=== PATIENT | female | born 1990 | race American Indian/Alaskan Native ===

== ENCOUNTER 2019-05-23 09:41 | Emergency (ER) | payer SELFPAY ==
[2019-05-23 11:01] LABS: Basophils # (Auto) 0.1 K/mm3 (0.0-0.1); Basophils % (Auto) 0.7 % (0.0-1.8); Eosinophils # (Auto) 0.1 K/mm3 (0.0-0.4); Eosinophils % (Auto) 1.3 % (0.0-4.3); Hemoglobin 13.9 gm/dl (10.1-14.3); Lymphocytes # (Auto) 2.2 K/mm3 (1.2-5.4); Lymphocytes % (Auto) 19.9 % (13.4-35.0); Mean Corpuscular HGB Conc 33 % (30-34); Mean Corpuscular Volume 94 fl (79-97); Monocytes # (Auto) 0.6 K/mm3 (0.0-0.8); Monocytes % (Auto) 5.8 % (0.0-7.3); Platelet Count 282 K/mm3 (140-440); Red Blood Count 4.46 M/mm3 (3.65-5.03); Red Cell Distribution Width 13.8 % (13.2-15.2)
[2019-05-23 11:18] LABS: Alanine Aminotransferase 16 units/L (7-56); Albumin 3.9 g/dL (3.9-5); BUN/Creatinine Ratio 11; Blood Urea Nitrogen 8 mg/dL (7-17); Calcium 8.9 mg/dL (8.4-10.2); Hemolysis Index 8
[2019-05-23 11:52] LABS: Bilirubin,Urine NEG (Negative); Blood,Urine NEG (Negative); Color,Urine Yellow (Yellow); Mucus,Urine 2+ /HPF; Protein,Urine <15 mg/dL mg/dL (Negative); Urobilinogen,Urine < 2.0 mg/dL (<2.0)
--- NOTE | 2019-05-23 12:15 | Emergency Department Report ---
ED Female HPI - General Chief complaint: Urogenital-Female Stated complaint: ABD PAIN Time Seen by Provider: 05/23/19 11:23 Source: patient Mode of arrival: Ambulatory Limitations: No Limitations - History of Present Illness Initial comments: This is a 28-year-old female who is alert and who presents to ED complaining of pelvic pain intermittently for the past 2 weeks. Patient states that she started to notice S vaginal odor with mild yellow discharge for the past week now. Patient states that she has had a history of abnormal cycle and states her last menstrual period was 03/06/2019. Patient did admit to have a recent operative intercourse. She denies fevers/chills/nausea vomiting or diarrhea or any vaginal bleeding. MD Complaint: pelvic pain - Related Data Previous Rx's Medication Instructions Recorded Last Taken Type metroNIDAZOLE [Flagyl] 500 mg PO Q12HR #14 tab 05/23/19 Unknown Rx Allergies Allergy/AdvReac Type Severity Reaction Status Date / Time No Known Allergies Allergy Unverified 05/23/19 09:47 ED Review of Systems ROS: Stated complaint: ABD PAIN Other details as noted in HPI Comment: All other systems reviewed and negative ED Past Medical Hx - Past Medical History Previous Medical History?: No - Surgical History Past Surgical History?: No - Social History Smoking Status: Never Smoker Substance Use Type: None - Medications Home Medications: Home Medications Medication Instructions Recorded Confirmed Last Taken Type metroNIDAZOLE [Flagyl] 500 mg PO Q12HR #14 tab 05/23/19 Unknown Rx ED Physical Exam - General Limitations: No Limitations General appearance: alert, in no apparent distress - Head Head exam: Present: atraumatic, normocephalic - Eye Eye exam: Present: normal appearance - ENT ENT exam: Present: mucous membranes moist - Neck Neck exam: Present: normal inspection - Respiratory Respiratory exam: Present: normal lung sounds bilaterally. Absent: respiratory distress - Cardiovascular Cardiovascular Exam: Present: regular rate, normal rhythm. Absent: systolic mu rmur, diastolic murmur, rubs, gallop - GI/Abdominal GI/Abdominal exam: Present: soft, normal bowel sounds. Absent: distended, tenderness, guarding, rebound, mass - Extremities Exam Extremities exam: Present: normal inspection - Back Exam Back exam: Present: normal inspection - Neurological Exam Neurological exam: Present: alert, oriented X3 - Psychiatric Psychiatric exam: Present: normal affect, normal mood - Skin Skin exam: Present: warm, dry, intact, normal color. Absent: rash ED Course Vital Signs 05/23/19 05/23/19 05/23/19 10:07 11:41 13:25 Temperature 98.8 F Pulse Rate 70 Respiratory 16 16 17 Rate Blood Pressure 127/72 Blood Pressure [Left] O2 Sat by Pulse 98 Oximetry 05/23/19 15:17 Temperature 98.2 F Pulse Rate 74 Respiratory 16 Rate Blood Pressure Blood Pressure 116/67 [Left] O2 Sat by Pulse 100 Oximetry ED Medical Decision Making - Lab Data Result diagrams: 05/23/19 10:12 05/23/19 10:12 - Radiology Data Radiology results: report reviewed, image reviewed OB Ultrasound HISTORY: Acute pelvic pain. TECHNIQUE: Grayscale and color Doppler imaging performed. COMPARISON: None FINDINGS: Transabdominal and endovaginal imaging was performed. The uterus measures 10.3 x 5.6 x 7.1 cm. There is an intrauterine cystic stru cture with a pole measuring 1.2 cm in length. This corresponds with an EGA of 7 weeks and 2 days. Mean sac diameter is 2.7 cm corresponding with an EGA of 7 weeks and 5 days. The overall EGA is 7 weeks and 4 days taking these measurements into account. The heart rate is 144 bpm. A tiny yolk sac is present. There is preserved blood flow to both ovaries with small probable complex cyst in the right. IMPRESSION: 1. Single viable intrauterine gestation as outlined above. 2. Small probable complex cyst in the right ovary. Attention on follow-up recommended. Signer Name: Tre Mccartney MD Signed: 05/23/2019 2:57 PM Workstation Name: [id number] Transcribed By: ADRIENNE Dictated By: Tre Mccartney MD Electronically Authenticated By: Tre Mccartney MD Signed Date/Time: 05/23/19 7012 - Medical Decision Making 28-year-old female presents with BV and normal Labs are within normal limits, test positive, discussed findings with the patient. OB ultrasound ordered, ultrasound report see report above Patient received Tylenol for pelvic pain while in ED. Wet prep and gonorrhea and Chlamydia cultures were sent. Urinalysis is negative Vital signs are normal she is in no acute distress. Discussed the patient is to follow up with [facility] as soon as possible. Critical care attestation.: If time is entered above; I have spent that time in minutes in the direct care of this critically ill patient, excluding procedure time. ED Disposition Clinical Impression: Ovarian cyst Vaginitis Qualifiers: Chronicity: acute Qualified Code(s): N76.0 - Acute vaginitis Qualifiers: Weeks of gestation: less than 8 weeks Qualified Code(s): Z3A.01 - Less than 8 weeks gestation of Disposition: TO HOME OR SELFCARE Is pt being admited?: No Does the pt Need Aspirin: No Condition: Stable Instructions: (ED), Bacterial Vaginosis (ED) Additional Instructions: Make sure to follow up with the [facility] as discussed. Take Tylenol as needed for cramping and pain If you have any worsening symptoms or develop new symptoms please return to ED immediately. Prescriptions: metroNIDAZOLE [Flagyl] 500 mg PO Q12HR #14 tab Referrals: PRIMARY CARE, [Primary Care Provider] - 3-5 Days [facility] [Provider Group] - 3-5 Days [facility] [Provider Group] - 3-5 Days Forms: Accompanied Note, Work/School Release Form(ED) Time of Disposition: 15:05
[2019-05-23] MEDS ORDERED: ACETAMINOPHEN 500 MG TAB PO ONE (13:21)
[2019-05-23] MEDS ORDERED: ACETAMINOPHEN 500 MG TAB ONE (13:25)
--- NOTE | 2019-05-23 15:01 | Ultrasound Report ---
OB Ultrasound HISTORY: Acute pelvic pain. TECHNIQUE: Grayscale and color Doppler imaging performed. COMPARISON: None FINDINGS: Transabdominal and endovaginal imaging was performed. The uterus measures 10.3 x 5.6 x 7.1 cm. There is an intrauterine cystic structure with a pole measuring 1.2 cm in length. This corresponds with an EGA of 7 weeks and 2 days. Mean sac diameter is 2.7 cm corresponding with an EGA of 7 weeks and 5 days. The overall EGA is 7 weeks and 4 days taking these measurements into account. The heart rate is 144 bpm. A tiny yolk sac is present. There is pres erved blood flow to both ovaries with small probable complex cyst in the right. IMPRESSION: 1. Single viable intrauterine gestation as outlined above. 2. Small probable complex cyst in the right ovary. Attention on follow-up recommended. Signer Name: Tre Mccartney MD Signed: 05/23/2019 2:57 PM Workstation Name: [id number]
[2019-05-23 15:18] VITALS: BP 116/67
== END 2019-05-23 15:19 | disposition home or self-care (01) ==
LOC: ED 09:41
DX: O34.81 Maternal care for other abnormalities of pelvic organs, first trimester (principal); N83.201 Unspecified ovarian cyst, right side; Z79.899 Other long term (current) drug therapy; Z3A.01 Less than 8 weeks gestation of pregnancy
CPT/HCPCS: 36415; 76801; 76817; 80053; 81001; 84702; 84703; 85025; 87210; 87591

== ENCOUNTER 2019-08-13 14:05 | Observation (INO) | payer OTHER ==
--- NOTE | 2019-08-13 14:18 | Event Note ---
ED Screening Note Date of service: 08/13/19 Time: 14:17 ED Screening Note: 29 yo F, , 19 wks with intermittent leakage of clear vaginal fluid since this morning. Reports intermittent, mild, sharp lower abdominal pain. Denies vaginal bleeding. OB: [facility] (cannot remember dr's name) This initial assessment/diagnostic orders/clinical plan/treatment(s) is/are subject to change based on patients health status, clinical progression and re- assessment by fellow clinical providers in the ED. Further treatment and workup at subsequent clinical providers discretion. Patient/guardian urged not to elope from the ED as their condition may be serious if not clinically assessed and managed. Initial orders include: US labs
--- NOTE | 2019-08-13 15:36 | Ultrasound Report ---
US OB >= 14 weeks Fetus INDICATION / CLINICAL INFORMATION: 19 wks , abd pain, leakage of fluid. COMPARISON: 05/23/2019 FINDINGS: Viable single intrauterine gestation in the cephalic presentation. cardiac activity is identified with a heart rate of 156 bpm The placenta is anterior and free of the os. Amniotic fluid volume is decreased. measurements: BPD 4.3 equal to 18 weeks 6 days Head circumference 15.8 equal to 18 weeks 5 days Abdominal circumference 12.7 equal to 18 weeks 2 days Femur length 2.9 equal to 18 weeks 6 days Estimated body weight 246 g Cervical length was measured at 4 cm. IMPRESSION: 1. Viable single 18 week 3 day gestation. 2. Decreased amniotic fluid. Signer Name: Anant Elise MD Signed: 08/13/2019 3:32 PM Workstation Name: [id number]
[2019-08-13 16:29] LABS: Basophils # (Auto) 0.1 K/mm3 (0.0-0.1); Basophils % (Auto) 0.5 % (0.0-1.8); Eosinophils # (Auto) 0.4 K/mm3 (0.0-0.4); Eosinophils % (Auto) 3.1 % (0.0-4.3); Hematocrit 37.5 % (30.3-42.9); Hemoglobin 12.6 gm/dl (10.1-14.3); Lymphocytes % (Auto) 15.5 % (13.4-35.0); Mean Corpuscular HGB Conc 34 % (30-34); Mean Corpuscular Volume 93 fl (79-97); Monocytes % (Auto) 7.7 % (0.0-7.3); Platelet Count 257 K/mm3 (140-440); Red Blood Count 4.02 M/mm3 (3.65-5.03); Red Cell Distribution Width 14.2 % (13.2-15.2)
[2019-08-13 16:48] LABS: BUN/Creatinine Ratio 12; Blood Urea Nitrogen 6 mg/dL (7-17); Calcium 9.7 mg/dL (8.4-10.2); Hemolysis Index 9
[2019-08-13 17:29] LABS: Bilirubin,Urine NEG (Negative); Blood,Urine NEG (Negative); Color,Urine Yellow (Yellow); Mucus,Urine FEW /HPF; Protein,Urine <15 mg/dL mg/dL (Negative); RBC,Urine < 1.0 /HPF (0.0-6.0); Urobilinogen,Urine < 2.0 mg/dL (<2.0)
--- NOTE | 2019-08-13 17:43 | Emergency Department Report ---
ED HPI - General Chief complaint: Urogenital-Female Stated complaint: 19 WEEKS FLUID LEAK Time Seen by Provider: 08/13/19 16:52 Source: patient Mode of arrival: Wheelchair Limitations: No Limitations - History of Present Illness Initial comments: 29-year-old female me approximately 19 weeks complaining of leakage of fluid from vagina since this morning. There was initially green but more recently yellow. There has been making intermittently. Patient complains of some mild lower abdominal discomfort due to her abdomen is swelling with and denies contractions. No fever or dysuria. Patient has received care. Her BUSINESS ASSISTANT is in [facility] and patient states she is supposed to deliver here. This patient's first with no history of ectopic, miscarriages, or abortions. PT follows with [facility] in [place]. - Related Data Previous Rx's Medication Instructions Recorded Last Taken Type metroNIDAZOLE [Flagyl] 500 mg PO Q12HR #14 tab 05/23/19 Unknown Rx Allergies Allergy/AdvReac Type Severity Reaction Status Date / Time No Known Allergies Allergy Verified 08/13/19 14:08 ED Review of Systems ROS: Stated complaint: 19 WEEKS FLUID LEAK Other details as noted in HPI Comment: All other systems reviewed and negative ED Past Medical Hx - Past Medical History Previous Medical History?: No - Surgical History Past Surgical History?: No - Social History Smoking Status: Never Smoker Substance Use Type: None - Medications Home Medications: Home Medications Medication Instructions Recorded Confirmed Last Taken Type metroNIDAZOLE [Flagyl] 500 mg PO Q12HR #14 tab 05/23/19 Unknown Rx ED Physical Exam - General Limitations: No Limitations - Other Other exam information: General: No limitations, patient is alert in no acute distress Head exam: Atraumatic, normocephalic Eyes exam: Normal appearance ENT: Moist mucous membrane Neck exam: Normal inspection, full range of motion Respiratory exam: Clear to auscultation bilateral, no wheezes, rales, crackles Cardiovascular: Normal rate and rhythm Abdomen: Soft, abdomen without significant pelvic tenderness. : Clear and white discharge in the vaginal canal Extremity: No deformity Back: Normal Inspection, no CVA tenderness Neurologic: Alert, oriented x3, speech clear, no gross motor or sensory deficit Psychiatric: Normal mood, affect Skin: No rash ED Course Vital Signs 08/13/19 08/13/19 08/13/19 14:09 14:13 17:11 Temperature 97.5 F L 97.5 F L Pulse Rate 94 H 96 H 83 Respiratory 18 18 18 Rate Blood Pressure 117/70 117/70 Blood Pressure 112/67 [Left] O2 Sat by Pulse 98 95 100 Oximetry - Consultations Consultation #1: 08/13/19 18:02 Reason the patient only provided that her OB doctor is at [facility]. After speaking to inspector insulation in store demonstrator Franny with in store demonstrator [employer] she clarified kasie the [facility] is likely part of [facility]. I confirmed with patient that it is indeed a [facility] clinic in [place]. Dr Chew is inspector insulation for this group. Leela called on cell phone and he did not answer. message left on voicemail to call ed and text message also sent to phone. 08/13/19 18:24 OR called, Dr Swenson is no there apparently Other providers are having difficulty getting a hold of him. warehouse operator made aware. 08/13/19 18:52 case d/w Dr Swenson, rec Ampicillin 2g iv x 1 and admit to mother baby ED Medical Decision Making - Lab Data Result diagrams: 08/13/19 15:40 08/13/19 15:40 Lab Results 08/13/19 08/13/19 08/13/19 Range/Units 15:40 15:40 15:40 WBC 12.7 H (4.5-11.0) K/mm3 RBC 4.02 (3.65-5.03) M/mm3 Hgb 12.6 (10.1-14.3) gm/dl Hct 37.5 (30.3-42.9) % MCV 93 (79-97) fl MCH 31 (28-32) pg MCHC 34 (30-34) % RDW 14.2 (13.2-15.2) % Plt Count 257 (140-440) K/mm3 Lymph % (Auto) 15.5 (13.4-35.0) % [place] % (Auto) 7.7 H (0.0-7.3) % Eos % (Auto) 3.1 (0.0-4.3) % Baso % (Auto) 0.5 (0.0-1.8) % Lymph # 2.0 (1.2-5.4) K/mm3 [place] # 1.0 H (0.0-0.8) K/mm3 Eos # 0.4 (0.0-0.4) K/mm3 Baso # 0.1 (0.0-0.1) K/mm3 Seg Neutrophils % 73.2 H (40.0-70.0) % Seg Neutrophils # 9.3 H (1.8-7.7) K/mm3 Sodium 135 L (137-145) mmol/L Potassium 3.7 (3.6-5.0) mmol/L Chloride 102.7 (98-107) mmol/L Carbon Dioxide 21 L (22-30) mmol/L Anion Gap 15 mmol/L BUN 6 L (7-17) mg/dL Creatinine 0.5 L (0.7-1.2) mg/dL Estimated GFR > 60 ml/min BUN/Creatinine Ratio 12 % Glucose 97 (65-100) mg/dL Calcium 9.7 (8.4-10.2) mg/dL HCG, Quant 75819 H (0-4) mIU/mL Urine Color (Yellow) Urine Turbidity (Clear) Urine pH (5.0-7.0) Ur Specific [place] (1.003-1.030) Urine Protein (Negative) mg/dL Urine Glucose (UA) (Negative) mg/dL Urine Ketones (Negative) mg/dL Urine Blood (Negative) Urine Nitrite (Negative) Urine Bilirubin (Negative) Urine Urobilinogen (<2.0) mg/dL Ur Leukocyte Esterase (Negative) Urine WBC (Auto) (0.0-6.0) /HPF Urine RBC (Auto) (0.0-6.0) /HPF U Epithel Cells (Auto) (0-13.0) /HPF Urine Mucus /HPF 08/13/19 Range/Units 17:02 WBC (4.5-11.0) K/mm3 RBC (3.65-5.03) M/mm3 Hgb (10.1-14.3) gm/dl Hct (30.3-42.9) % MCV (79-97) fl MCH (28-32) pg MCHC (30-34) % RDW (13.2-15.2) % Plt Count (140-440) K/mm3 Lymph % (Auto) (13.4-35.0) % [place] % (Auto) (0.0-7.3) % Eos % (Auto) (0.0-4.3) % Baso % (Auto) (0.0-1.8) % Lymph # (1.2-5.4) K/mm3 [place] # (0.0-0.8) K/mm3 Eos # (0.0-0.4) K/mm3 Baso # (0.0-0.1) K/mm3 Seg Neutrophils % (40.0-70.0) % Seg Neutrophils # (1.8-7.7) K/mm3 Sodium (137-145) mmol/L Potassium (3.6-5.0) mmol/L Chloride (98-107) mmol/L Carbon Dioxide (22-30) mmol/L Anion Gap mmol/L BUN (7-17) mg/dL Creatinine (0.7-1.2) mg/dL Estimated GFR ml/min BUN/Creatinine Ratio % Glucose (65-100) mg/dL Calcium (8.4-10.2) mg/dL HCG, Quant (0-4) mIU/mL Urine Color Yellow (Yellow) Urine Turbidity Clear (Clear) Urine pH 6.0 (5.0-7.0) Ur Specific [place] 1.014 (1.003-1.030) Urine Protein <15 mg/dl (Negative) mg/dL Urine Glucose (UA) Neg (Negative) mg/dL Urine Ketones Neg (Negative) mg/dL Urine Blood Neg (Negative) Urine Nitrite Neg (Negative) Urine Bilirubin Neg (Negative) Urine Urobilinogen < 2.0 (<2.0) mg/dL Ur Leukocyte Esterase Tr (Negative) Urine WBC (Auto) 16.0 H (0.0-6.0) /HPF Urine RBC (Auto) < 1.0 (0.0-6.0) /HPF U Epithel Cells (Auto) 2.0 (0-13.0) /HPF Urine Mucus Few /HPF - Radiology Data Radiology results: report reviewed US OB >= 14 weeks Fetus INDICATION / CLINICAL INFORMATION: 19 wks , abd pain, leakage of fluid. COMPARISON: 05/23/2019 FINDINGS: Viable single intrauterine gestation in the cephalic presentation. cardiac activity is identified with a heart rate of 156 bpm The placenta is anterior and free of the os. Amniotic fluid volume is decreased. measurements: BPD 4.3 equal to 18 weeks 6 days Head circumference 15.8 equal to 18 weeks 5 days Abdominal circumference 12.7 equal to 18 weeks 2 days Femur length 2.9 equal to 18 weeks 6 days Estimated body weight 246 g Cervical length was measured at 4 cm. IMPRESSION: 1. Viable single 18 week 3 day gestation. 2. Decreased amniotic fluid. - Medical Decision Making pt to be admitted to mother baby, case d/w Dr Swenson Ampicillin 2g ordered as per OB Macrobid po x 1 also given for uti prior to ob consult urine culture pending - Differential Diagnosis leakage of fluid, infection Critical Care Time: No Critical care attestation.: If time is entered above; I have spent that time in minutes in the direct care of this critically ill patient, excluding procedure time. ED Disposition Clinical Impression: Leakage of amniotic fluid, 18 weeks gestation of , Urine WBC increased Disposition: DC-[id number] OP ADMIT IP TO THIS HOSP Is pt being admited?: Yes Does the pt Need Aspirin: No Condition: Stable Time of Disposition: 19:03 (DR Swenson/ob)
[2019-08-13] MEDS ORDERED: NITROFURANTOIN MONOHYD/M-CRYST 100 MG CAP PO ONE (18:01)
[2019-08-13] MEDS ORDERED: AMPICILLIN/NS 2 GM/100 ML 2 GM/100 ML BAG IV ONE (18:49)
[2019-08-13] MEDS ORDERED: AMPICILLIN 2,000 MG in SODIUM CHLORIDE 0.9% 50 ML IV ONE (18:49)
--- NOTE | 2019-08-13 21:52 | History and Physical Report ---
History of Present Illness Date of examination: 08/13/19 Date of admission: 08/13/19 19:04 Chief complaint: Leaking of fluid since 11:10 AM today. History of present illness: Requested by Dr. Chew to do H&P. Dr. Chew is taking care of patient; H&P put in as courtesy per MD request. Patient is a 29 year old female who presented to the ED complaining of zhao kyle of clear and green fluid from vagina since 11:10 AM today. Patient reports she also has pelvic cramping but denies vaginal bleeding. Patient states she feels movement. Patient states she receives care at [facility] but records are not available. Patient reports her LMP is 01/04/2020 based on an early US. Patient denies any problems with this ; states she takes vitamins and no other medications. 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 denies: smoking, alcohol abuse, prescription drug abuse, IV drug use - Obstetrical History Expected Date of Delivery: 01/04/20 Actual Gestation: 19 Week(s) 3 Day(s) : 1 Para: 0 Hx # Term Pregnancies: 0 Number of Pregnancies: 0 Spontaneous Abortions: 0 Induced : 0 Number of Living Children: 0 Medications and Allergies Allergies Allergy/AdvReac Type Severity Reaction Status Date / Time No Known Allergies Allergy Verified 08/13/19 14:08 Home Medications Medication Instructions Recorded Confirmed Last Taken Type metroNIDAZOLE [Flagyl] 500 mg PO Q12HR #14 tab 05/23/19 Unknown Rx Review of Systems All systems: negative (leaking of fluid from vagina; pelvic cramping) - Vital Signs Vital signs: Vital Signs Temp Pulse Resp BP Pulse Ox 97.5 F L 94 H 18 117/70 98 08/13/19 14:09 08/13/19 14:09 08/13/19 14:09 08/13/19 14:08/13/19 14:09 Temp Pulse Resp BP Pulse Ox 97.4 F L 86 18 105/59 98 08/13/19 21:05 08/13/19 21:05 08/13/19 21:05 08/13/19 21:05 08/13/19 21:05 - Physical Exam Cardiovascular: Regular rate, Normal S1, Normal S2, No murmurs Lungs: Positive: Clear to auscultation Abdomen: Positive: normal appearance, soft. Negative: distention, tenderness, guarding Extremities: Positive: normal. Negative: tenderness Results Result Diagrams: 08/13/19 15:40 08/13/19 15:40 Abnormal lab results 08/13/19 08/13/19 08/13/19 Range/Units 15:40 15:40 15:40 WBC 12.7 H (4.5-11.0) K/mm3 [place] % (Auto) 7.7 H (0.0-7.3) % [place] # 1.0 H (0.0-0.8) K/mm3 Seg Neutrophils % 73.2 H (40.0-70.0) % Seg Neutrophils # 9.3 H (1.8-7.7) K/mm3 Sodium 135 L (137-145) mmol/L Carbon Dioxide 21 L (22-30) mmol/L BUN 6 L (7-17) mg/dL Creatinine 0.5 L (0.7-1.2) mg/dL HCG, Quant 98159 H (0-4) mIU/mL Urine WBC (Auto) (0.0-6.0) /HPF 08/13/19 Range/Units 17:02 WBC (4.5-11.0) K/mm3 [place] % (Auto) (0.0-7.3) % [place] # (0.0-0.8) K/mm3 Seg Neutrophils % (40.0-70.0) % Seg Neutrophils # (1.8-7.7) K/mm3 Sodium (137-145) mmol/L Carbon Dioxide (22-30) mmol/L BUN (7-17) mg/dL Creatinine (0.7-1.2) mg/dL HCG, Quant (0-4) mIU/mL Urine WBC (Auto) 16.0 H (0.0-6.0) /HPF All other labs normal. Assessment and Plan A: at 19 weeks, 3 days gestation. Possible SROM. Threatened AB. UTI. P: Continue current antibiotics for UTI. Managment/care of patient is to be by Dr. Chew.
[2019-08-14] MEDS ORDERED: SODIUM CHLORIDE 0.9% 1000 ML 1,000 ML IV SCH ×2 (01:30→13:00)
[2019-08-14] MEDS: AMPICILLIN/NS 1 GM/50 ML 1 GM/50 ML BAG IV SCH ×3 (03:40→14:00)
[2019-08-14] MEDS ORDERED: MORPHINE 2 MG/1 ML INJ IM SCH (13:00)
[2019-08-14 14:52] LABS: Amphetamine Screen,Urine PRESUMPTIVE NEGATIVE; Benzodiazepines Screen,Urine PRESUMPTIVE NEGATIVE; Cannabinoid Screen,Urine PRESUMPTIVE NEGATIVE; Cocaine Screen,Urine PRESUMPTIVE NEGATIVE; Methadone Screen,Urine PRESUMPTIVE NEGATIVE; Opiate Screen,Urine PRESUMPTIVE NEGATIVE
[2019-08-14] MEDS ORDERED: fentaNYL 100 MCG/2 ML INJ IV ONE (15:36)
[2019-08-14] MEDS ORDERED: fentaNYL 250 MCG/5 ML INJ IV PRN (16:00)
[2019-08-14] MEDS ORDERED: fentaNYL 250 MCG/5 ML INJ IV SCH (16:00)
[2019-08-14] MEDS ORDERED: miSOPROStol 200 MCG TAB ONE (16:46)
[2019-08-14] MEDS ORDERED: miSOPROStol 200 MCG TAB PR ONE (17:00)
--- NOTE | 2019-08-14 17:34 | Event Note ---
Date: 08/14/19 Dr. Chew called and stated that patient delivered baby and placenta and that she is not bleeding. Dr. Chew requests that I make sure patient receives 800 mcg of Cytotec rectally. I spoke with patient's nurse and nurse states that she has just given Cytotec 800 mcg rectally. Patient's vaginal bleeding is minimal. Comforted patient and she states that she would like to speak with social media editor/vocational case manager. Consult put in for patient. orders put in for patient per RN request.
[2019-08-14] MEDS ORDERED: HYDROcodone/ACETAMINOPHEN 5-325 MG TAB PO PRN (17:35)
[2019-08-14] MEDS ORDERED: WITCH HAZEL/ GLYCERIN PAD TP PRN (17:35)
[2019-08-14] MEDS ORDERED: MAGNESIUM HYDROXIDE (MOM) ORAL LIQD UDC PO PRN (17:35)
[2019-08-14] MEDS: IBUPROFEN 600 MG TAB PO SCH (17:52)
[2019-08-15 05:44] LABS: Hematocrit 32.8 % (30.3-42.9); Hemoglobin 11.1 gm/dl (10.1-14.3)
[2019-08-15] MEDS: IBUPROFEN 600 MG TAB PO SCH (07:34)
--- NOTE | 2019-08-15 11:11 | Progress Note ---
Assessment and Plan - Patient Problems (1) Spontaneous loss Current Visit: Yes Status: Acute Plan to address problem: PPD 1 - stable Discharge to home today Follow up at [facility] as needed or in 4 weeks for exam Subjective - Subjective Date of service: 08/15/19 Principal diagnosis: PPD #1; s/p SAB @ 19 weeks Interval history: see ED Screening, , H&P and Event Note Patient reports: appetite normal, voiding normally, pain well controlled, ambulating normally, no dizzy ambulation : Objective - Vital Signs Latest vital signs: Vital Signs Temp Pulse Resp BP BP Pulse Ox 08/15/19 07:54 99.0 F 107 H 20 99/60 100 08/15/19 06:11 98.6 F 90 18 100/69 100 08/15/19 02:13 97.7 F 94 H 20 105/58 98 08/14/19 21:30 98.2 F 95 H 18 104/62 99 08/14/19 19:28 89 107/54 08/14/19 18:58 93 H 125/68 08/14/19 18:28 98 H 110/64 08/14/19 17:58 92 H 124/70 08/14/19 17:25 101 H 120/73 08/14/19 17:24 94 H 100 08/14/19 17:19 104 H 100 08/14/19 17:14 103 H 100 08/14/19 17:10 100 H 99/54 08/14/19 17:09 99 H 100 08/14/19 17:04 99 H 100 08/14/19 16:59 101 H 100 08/14/19 16:55 100 H 97/59 08/14/19 16:54 98 H 100 08/14/19 16:49 96 H 100 08/14/19 16:44 100 H 100 08/14/19 16:41 96 H 97/52 08/14/19 16:39 101 H 100 08/14/19 16:34 102 H 99 08/14/19 16:29 97 H 100 08/14/19 16:25 100 H 123/70 08/14/19 16:24 101 H 100 08/14/19 16:19 115 H 100 08/14/19 16:16 110 H 71 L 08/14/19 16:14 107 H 100 08/14/19 16:13 98.8 F 20 08/14/19 16:12 100 H 20 134/73 08/14/19 16:09 100 H 100 08/14/19 16:04 98 H 100 08/14/19 15:59 99 H 99 08/14/19 15:54 90 100 08/14/19 15:49 98 H 100 08/14/19 15:44 98 H 100 08/14/19 15:39 102 H 99 08/14/19 15:34 98 H 100 08/14/19 15:29 97 H 100 08/14/19 15:24 95 H 100 08/14/19 15:19 93 H 100 08/14/19 15:14 95 H 100 08/14/19 15:09 98 H 95 08/14/19 15:00 94 H 100 08/14/19 14:55 98 H 100 08/14/19 14:50 99 H 100 08/14/19 14:45 94 H 100 08/14/19 14:40 99 H 100 08/14/19 14:35 95 H 100 08/14/19 14:30 97 H 100 08/14/19 14:25 94 H 100 08/14/19 14:20 95 H 100 08/14/19 14:15 96 H 100 08/14/19 14:10 93 H 100 08/14/19 13:30 99 H 100 08/14/19 13:25 96 H 100 08/14/19 13:20 92 H 100 08/14/19 13:18 98.6 F 20 08/14/19 13:15 102 H 100 08/14/19 13:10 93 H 118/66 99 08/14/19 12:17 94 H 100 08/14/19 12:12 94 H 100 08/14/19 12:07 94 H 112/62 100 Intake and Output 08/14/19 08/15/19 08/15/19 23:59 07:59 15:59 Intake Total 480 Output Total 1200 Balance -720 Intake: Intake, Free Water 480 Output: Urine 1200 Void 1200 Other: Total, Output Amount 800 Estimated Blood Loss 100 - Exam Cardiovascular: Present: Regular rate Lungs: Present: Clear to auscultation Abdomen: Present: normal appearance, soft Vulva: both: normal Uterus: Present: normal, firm, fundal height below umbilicus Extremities: Present: normal Comments: scant lochia
--- NOTE | 2019-08-15 11:18 | Discharge Summary ---
Providers - Providers Date of Admission: 08/13/19 19:04 Date of discharge: 08/15/19 Attending physician: MJ PAUL MD 08/14/19 17:38 Consult to Case Management [CONS] Routine Services Needed at Discharge: Shoe Stainer Additional Physician Instructions: SAB. Patient may need grief services. Also undecided if she wants autopsy on baby or not. Primary care physician: SCREEN MA[employer]PER[employer]OR Hospitalization Reason for admission: other (spontaneous rupture of membranes at 19 weeks) Delivery: Episiotomy: none Laceration: none Other procedures: none complications: none Discharge diagnosis: other (complete spontaneous ) Hospital course: Uncomplicated Condition at discharge: Stable Disposition: DC-01 TO HOME OR SELFCARE - Discharge Diagnoses (1) Spontaneous loss Status: Acute Plan - Discharge Medications Prescriptions: Ibuprofen [Motrin 600 MG tab] 600 mg PO Q6H #30 tablet - Provider Discharge Summary Activity: routine, no sex for 6 weeks, no heavy lifting 4 weeks, no strenuous exercise Diet: routine Instructions: routine Additional instructions: [] Smoking cessation referral if applicable(refer to patient education folder for contact #) [] Refer to [facility]'s [facility] Booklet Call your doctor immediately for: * Fever > 100.5 * Heavy vaginal bleeding ( >1 pad per hour) * Severe persistent headache * Shortness of breath * Reddened, hot, painful area to leg or breast * Drainage or odor from incision. * Keep incision clean and dry at all times and follow doctor's instructions regarding bathing/showering - Follow up plan Follow up: PRIMARY CAREMD [Primary Care Provider] - 09/05/19 (Follow up at [place] as needed or in 4 weeks for exam) Forms: [facility] Discharge Summary
[2019-08-15 12:19] VITALS: BP 103/57
== END 2019-08-15 14:00 | disposition home or self-care (01) ==
LOC: ED 14:05 → OB 19:04 → LD 08-14 11:52 → OB 08-14 20:51
PROVIDERS: ADMIT Obstetrics & Gynecology; ATTEND Obstetrics & Gynecology
DX: O42.912 Preterm premature rupture of membranes, unspecified as to length of time between rupture and onset of labor, second trimester (principal); O23.42 Unspecified infection of urinary tract in pregnancy, second trimester; O26.892 Other specified pregnancy related conditions, second trimester; R82.998 Other abnormal findings in urine; Z3A.19 19 weeks gestation of pregnancy
CPT/HCPCS: 36415; 76805; 80048; 80307; 81001; 84702; 85014; 85018; 85025; 86850; 86900; 86901; 87086; 87210; 87591; 88305; 96365; 96366; 96372; 96375; 99284; G0378; J0290; J2270; J3010; J7030